=== PATIENT | male | born 1990 | race African-American/Black ===

== ENCOUNTER 2023-06-06 19:06 | Emergency (ER) | payer OTHER, SELFPAY ==
--- NOTE | ~2023-06-06 | XR_ITS ---
EXAMINATION: XR hand RT min 3V INDICATION: Right hand pain TECHNIQUE: Three views of the right hand are obtained. COMPARISON: None available FINDINGS: There is no acute fracture. There is deformity of the fifth metacarpal, consistent with hea led fracture. The joint spaces are normal. The soft tissues are unremarkable. IMPRESSION: 1. Healed fifth metacarpal fracture. Reviewed, dictated and finalized at location F.
[2023-06-06 19:21] VITALS: BP 151/79; PULSE 70; RESP 16; TEMP 36.8; O2SAT 100
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
== END 2023-06-06 20:08 | disposition home or self-care (01) ==
PROVIDERS: Emergency Provider Nurse Practitioner
DX: M79.641 Pain in right hand (principal)
CPT/HCPCS: 73130; 99213; G0463